=== PATIENT | female | born 1940 | race African-American/Black ===

== ENCOUNTER 2025-03-04 16:10 | Inpatient (IN) | payer MEDICARE, MEDICAID ==
[~2025-03-04] VITALS: Ht 165.1 cm; Wt 60.6 kg
[~2025-03-04 16:10] MED LIST: AMLO-905 PO; APIX2.5T PO; ATOR20TA PO; FURO20TA4 PO; HYDR25TA78 PO
[2025-03-04 16:13] VITALS: O2SAT 94
[2025-03-05 02:30] VITALS: BP 175/105; PULSE 123; PULSE 98; RESP 20; TEMP 36.5292
[2025-03-05 04:00] VITALS: BP 155/88; PULSE 107; RESP 18; TEMP 36.4; O2SAT 99
[2025-03-05] MEDS ORDERED: NALOXONE HCL 0.4MG/ML VIAL IV PRN (04:15)
[2025-03-05 08:00] VITALS: BP 153/93; PULSE 107; RESP 16; TEMP 36.3; O2SAT 97
[2025-03-05] MEDS: FUROSEMIDE 20MG TABLET PO SCH (08:55)
[2025-03-05] MEDS: AMLODIPINE 10MG TABLET PO SCH (08:55)
[2025-03-05] MEDS: HYDRALAZINE HCL 25MG TABLET PO SCH (08:55)
[2025-03-05] MEDS ORDERED: ONDANSETRON HCL 4MG/2ML INJ IV PRN (11:45)
[2025-03-05] MEDS ORDERED: IPRATROPIUM/ALBUTEROL 0.5-3(2.5)MG/3ML NEB HHN PRN (11:45)
[2025-03-05] MEDS ORDERED: ACETAMINOPHEN 325MG TABLET PO PRN (11:45)
[2025-03-05] MEDS ORDERED: DOCUSATE SODIUM 100MG CAPSULE PO PRN (11:45)
[2025-03-05 12:00] VITALS: BP 146/56; PULSE 78; RESP 20; TEMP 36.6; O2SAT 97
[2025-03-05 16:00] VITALS: BP 135/98; PULSE 74; RESP 18; TEMP 36.7; O2SAT 99
[2025-03-05 20:00] VITALS: BP 133/46; PULSE 85; RESP 18; TEMP 36.6; O2SAT 100
[2025-03-05] MEDS: ATORVASTATIN CALCIUM 20MG TABLET PO SCH (20:34)
[2025-03-05] MEDS ORDERED: APIXABAN 5 MG TABLET PO SCH (21:00)
[2025-03-05] MEDS: DILTIAZEM HCL 30MG TABLET PO SCH (21:55)
[2025-03-06] VITALS: BP 140/56; PULSE 64; RESP 17; TEMP 30.9; O2SAT 99
[2025-03-06 04:00] VITALS: BP 136/59; PULSE 80; RESP 18; TEMP 36.6; O2SAT 100
[2025-03-06 07:43] LABS: BASOPHILS % 1.3 % (0.0-2.0); EOSINOPHILS % 2.3 % (0.0-5.0); HEMATOCRIT. 22.9 % (36.0-48.0); HEMOGLOBIN. 7.1 g/dL (12.0-16.0); LYMPHOCYTES % 18.7 % (20.0-50.0); MEAN PLATELET VOLUME 8.1 fl (7.4-10.4); MONOCYTES % 10.9 % (2.0-8.0); NEUTROPHILS % 66.8 % (40.0-76.0); PLATELET 310 x1000/uL (130-400); RED BLOOD CELL COUNT 2.82 mill/uL (4.2-5.4); RED CELL DISTRIBUTION WIDTH 16.5 % (11.6-14.6)
[2025-03-06 08:00] VITALS: BP 149/84; PULSE 63; RESP 20; TEMP 35.9; O2SAT 96
[2025-03-06 08:04] LABS: CREATININE 3.5 mg/dL (0.6-1.0)
[2025-03-06 08:05] LABS: LDL CHOLESTEROL 66 mg/dL (5-100); TRIGLYCERIDE 32 mg/dL (0-150); UREA NITROGEN BLOOD 77 mg/dL (9-23)
[2025-03-06 08:36] LABS: TROPONIN I HIGH SENSITIVITY 55 ng/L (3.0-34)
[2025-03-06] MEDS: APIXABAN 2.5 MG TABLET PO SCH (09:10)
[2025-03-06 12:00] VITALS: BP 138/78; PULSE 61; RESP 20; TEMP 36.1; O2SAT 100
[2025-03-06 16:00] VITALS: BP 129/78; PULSE 61; RESP 18; TEMP 36.3; O2SAT 95
[2025-03-06 20:00] VITALS: BP 152/76; PULSE 100; RESP 20; TEMP 36.3; O2SAT 98
[2025-03-07] VITALS: BP 151/62; PULSE 59; RESP 19; TEMP 36.1; O2SAT 100
[2025-03-07 08:39] VITALS: BP 148/61; PULSE 56; RESP 20; TEMP 36.6; O2SAT 97
[2025-03-07] MEDS: SODIUM ZIRCONIUM CYCLOSILICATE 10GM/PACKET PO NR (12:14)
[2025-03-07 12:24] VITALS: BP 156/55; PULSE 59; RESP 20; TEMP 37.1; O2SAT 100
[2025-03-07 16:57] VITALS: BP 150/80; PULSE 60; RESP 20; TEMP 37.2; O2SAT 100
[2025-03-07 18:03] LABS: BASOPHILS % 1.9 % (0.0-2.0); EOSINOPHILS % 2.2 % (0.0-5.0); HEMATOCRIT. 25.3 % (36.0-48.0); HEMOGLOBIN. 8.0 g/dL (12.0-16.0); LYMPHOCYTES % 11.3 % (20.0-50.0); MEAN PLATELET VOLUME 8.1 fl (7.4-10.4); MONOCYTES % 10.2 % (2.0-8.0); NEUTROPHILS % 74.4 % (40.0-76.0); PLATELET 349 x1000/uL (130-400); RED BLOOD CELL COUNT 3.00 mill/uL (4.2-5.4); RED CELL DISTRIBUTION WIDTH 16.9 % (11.6-14.6)
[2025-03-07 18:31] LABS: CREATININE 3.7 mg/dL (0.6-1.0); UREA NITROGEN BLOOD 66.0 mg/dL (9-23)
[2025-03-07 20:00] VITALS: BP 155/75; PULSE 78; RESP 20; TEMP 36.4; O2SAT 95
[2025-03-08 04:00] VITALS: BP 168/109; PULSE 61; RESP 18; TEMP 36.5; O2SAT 97
[2025-03-08] MEDS: CLONIDINE 0.1MG TABLET PO PRN (04:51)
[2025-03-08] MEDS: SODIUM ZIRCONIUM CYCLOSILICATE 10GM/PACKET PO SCH ×2 (06:03→13:25)
[2025-03-08 06:24] LABS: BASOPHILS % 1.4 % (0.0-2.0); EOSINOPHILS % 2.4 % (0.0-5.0); HEMATOCRIT. 25.8 % (36.0-48.0); HEMOGLOBIN. 8.1 g/dL (12.0-16.0); LYMPHOCYTES % 13.9 % (20.0-50.0); MEAN PLATELET VOLUME 8.0 fl (7.4-10.4); MONOCYTES % 11.8 % (2.0-8.0); NEUTROPHILS % 70.5 % (40.0-76.0); PLATELET 345 x1000/uL (130-400); RED BLOOD CELL COUNT 3.18 mill/uL (4.2-5.4); RED CELL DISTRIBUTION WIDTH 17.0 % (11.6-14.6)
[2025-03-08 06:26] LABS: CREATININE 3.5 mg/dL (0.6-1.0); UREA NITROGEN BLOOD 83.0 mg/dL (9-23)
[2025-03-08 07:39] LABS: CLARITY URINE CLEAR (CLEAR); COLOR URINE YELLOW (YELLOW); GLUCOSE URINE NEGATIVE (NEGATIVE); KETONES URINE NEGATIVE (NEGATIVE); LEUKOCYTE ESTERASE URINE NEGATIVE (NEGATIVE); NITRITE URINE NEGATIVE (NEGATIVE); OCCULT BLOOD URINE NEGATIVE (NEGATIVE); PH URINE 5.5 (4.5-8.0); PROTEIN URINE 3+ (NEGATIVE); SPECIFIC GRAVITY URINE 1.016 (1.005-1.030); UROBILINOGEN URINE 0.2 E.U./dL (0.2-1.0)
[2025-03-08 08:23] VITALS: BP 150/106; PULSE 100; RESP 20; TEMP 37.2; O2SAT 98
[2025-03-08 08:53] LABS: BACTERIA URINE NONE SEEN; RBC URINE 0-2 /hpf (0-2); SQUAMOUS EPITHELIAL CELL URINE 1+ /lpf (RARE/1+); WBC URINE 0-2 /hpf (0-2); YEAST URINE NONE SEEN
[2025-03-08] MEDS: HYDRALAZINE HCL 100MG TABLET PO SCH (10:45)
[2025-03-08] MEDS ORDERED: ALBUTEROL (0.083%) 2.5MG/3ML NEB HHN SCH (11:15)
[2025-03-08 12:20] VITALS: BP 132/55; PULSE 57; RESP 20; TEMP 36.5; O2SAT 100
[2025-03-08 16:35] VITALS: BP 119/53; PULSE 54; RESP 20; TEMP 37.1; O2SAT 96
[2025-03-08] MEDS ORDERED: FUROSEMIDE 40MG/4ML VIAL ONE ×2 (17:41→17:50)
[2025-03-08] MEDS ORDERED: FUROSEMIDE 20MG/2ML VIAL ONE (17:42)
[2025-03-08] MEDS: FUROSEMIDE 20MG/2ML VIAL IVP NR (17:45)
[2025-03-08] MEDS: HYDROCODONE/ACETAMINOPHEN 5/325MG TABLET PO PRN (19:03)
[2025-03-08 20:00] VITALS: BP 132/77; PULSE 114; RESP 18; TEMP 36.8; O2SAT 96
[2025-03-09] VITALS: BP 131/58; PULSE 108; RESP 20; TEMP 37.1; O2SAT 98
[2025-03-09 04:00] VITALS: BP 148/87; PULSE 101; RESP 18; TEMP 36.9; O2SAT 98
[2025-03-09 06:20] LABS: CREATININE 3.6 mg/dL (0.6-1.0); UREA NITROGEN BLOOD 84.0 mg/dL (9-23)
[2025-03-09 06:38] LABS: BASOPHILS % 1.0 % (0.0-2.0); EOSINOPHILS % 3.7 % (0.0-5.0); HEMATOCRIT. 23.9 % (36.0-48.0); HEMOGLOBIN. 7.5 g/dL (12.0-16.0); LYMPHOCYTES % 8.8 % (20.0-50.0); MEAN PLATELET VOLUME 8.0 fl (7.4-10.4); MONOCYTES % 10.5 % (2.0-8.0); NEUTROPHILS % 76.0 % (40.0-76.0); PLATELET 341 x1000/uL (130-400); RED BLOOD CELL COUNT 2.95 mill/uL (4.2-5.4); RED CELL DISTRIBUTION WIDTH 16.8 % (11.6-14.6)
[2025-03-09 08:00] VITALS: BP 165/68; PULSE 69; RESP 17; TEMP 36.1; O2SAT 100
[2025-03-09 12:00] VITALS: BP 163/62; PULSE 65; RESP 18; TEMP 36.4; O2SAT 99
[2025-03-09 16:00] VITALS: BP 150/94; PULSE 71; RESP 20; O2SAT 100
[2025-03-09 20:00] VITALS: BP 124/84; PULSE 93; RESP 18; TEMP 37.1; O2SAT 97
[2025-03-09] MEDS: CLONIDINE 0.1MG TABLET PO SCH (22:12)
[2025-03-10] VITALS: BP 127/78; PULSE 90; RESP 20; TEMP 37; O2SAT 98
[2025-03-10 04:00] VITALS: BP 130/77; PULSE 91; RESP 18; TEMP 37.1; O2SAT 96
[2025-03-10 08:00] VITALS: BP 107/56; PULSE 61; RESP 20; TEMP 36.2; O2SAT 100
[2025-03-10] MEDS: FUROSEMIDE 40MG/4ML VIAL IVP SCH (08:23)
[2025-03-10 09:39] LABS: CREATININE 3.7 mg/dL (0.6-1.0); UREA NITROGEN BLOOD 92.0 mg/dL (9-23)
[2025-03-10 10:38] LABS: BASOPHILS % 1.6 % (0.0-2.0); EOSINOPHILS % 3.2 % (0.0-5.0); LYMPHOCYTES % 9.2 % (20.0-50.0); MEAN PLATELET VOLUME 8.0 fl (7.4-10.4); MONOCYTES % 11.8 % (2.0-8.0); NEUTROPHILS % 74.2 % (40.0-76.0); PLATELET 322 x1000/uL (130-400); RED BLOOD CELL COUNT 2.57 mill/uL (4.2-5.4); RED CELL DISTRIBUTION WIDTH 16.7 % (11.6-14.6)
[2025-03-10 10:48] LABS: HEMATOCRIT. 20.6 % (36.0-48.0); HEMOGLOBIN. 6.4 g/dL (12.0-16.0)
[2025-03-10 12:00] VITALS: BP 118/64; PULSE 74; RESP 20; TEMP 36.7; O2SAT 100
[2025-03-10 16:00] VITALS: BP 120/67; PULSE 71; RESP 18; TEMP 36.3; O2SAT 100
[2025-03-10 19:04] LABS: BASOPHILS % 1.7 % (0.0-2.0); EOSINOPHILS % 3.7 % (0.0-5.0); HEMATOCRIT. 23.0 % (36.0-48.0); HEMOGLOBIN. 7.2 g/dL (12.0-16.0); LYMPHOCYTES % 8.6 % (20.0-50.0); MEAN PLATELET VOLUME 8.1 fl (7.4-10.4); MONOCYTES % 11.0 % (2.0-8.0); NEUTROPHILS % 75.0 % (40.0-76.0); PLATELET 376 x1000/uL (130-400); RED BLOOD CELL COUNT 2.87 mill/uL (4.2-5.4); RED CELL DISTRIBUTION WIDTH 16.5 % (11.6-14.6)
[2025-03-10 19:11] LABS: FOLIC ACID (FOLATE) SERUM 7.93 ng/mL (>5.38)
[2025-03-10 19:12] LABS: VITAMIN B12 SERUM 483 pg/mL (211-911)
[2025-03-10 20:00] VITALS: BP 135/74; PULSE 77; RESP 16; TEMP 36.2; O2SAT 100
[2025-03-10] MEDS ORDERED: PATIENT'S OWN MEDICATION IV SCH (23:00)
[2025-03-10] MEDS ORDERED: IRON SUCROSE COMPLEX 100 MG/5 ML ML IV SCH (23:00)
[2025-03-11] VITALS (12 sets, daily range): BP systolic 99–163; BP diastolic 35–86; PULSE 52–104; RESP 18–20; TEMP 36.1–36.7; O2SAT 95–100
[2025-03-11] MEDS: IRON SUCROSE COMPLEX 100 MG/5 ML ML IV SCH (06:13)
[2025-03-11 07:07] LABS: CREATININE 3.8 mg/dL (0.6-1.0); UREA NITROGEN BLOOD 96.0 mg/dL (9-23)
[2025-03-11 07:47] LABS: BASOPHILS % 1.5 % (0.0-2.0); EOSINOPHILS % 3.0 % (0.0-5.0); HEMATOCRIT. 21.2 % (36.0-48.0); LYMPHOCYTES % 9.7 % (20.0-50.0); MEAN PLATELET VOLUME 8.0 fl (7.4-10.4); MONOCYTES % 13.5 % (2.0-8.0); NEUTROPHILS % 72.3 % (40.0-76.0); PLATELET 339 x1000/uL (130-400); RED BLOOD CELL COUNT 2.61 mill/uL (4.2-5.4); RED CELL DISTRIBUTION WIDTH 16.9 % (11.6-14.6)
[2025-03-11 08:07] LABS: HEMOGLOBIN. 6.7 g/dL (12.0-16.0)
[2025-03-11] MEDS ORDERED: QUET25TA36 PO (17:54)
[2025-03-11] MEDS ORDERED: ATOR10TA69 PO (17:54)
[2025-03-11] MEDS ORDERED: DOCU100T PO (17:54)
[2025-03-11] MEDS ORDERED: FURO40TA5 PO (17:54)
[2025-03-11] MEDS ORDERED: FAMO20TA8 PO (17:54)
[2025-03-11] MEDS ORDERED: CHOL400D7 PO (17:54)
[2025-03-11] MEDS ORDERED: ZOLP5TAB18 PO (17:54)
[2025-03-11] MEDS ORDERED: CLON0.1T PO (17:54)
[2025-03-11] MEDS ORDERED: APIX5TAB PO (17:54)
[2025-03-11] MEDS ORDERED: AMLO5TAB88 PO (17:54)
[2025-03-11] MEDS ORDERED: IPRA3AMP9 HHN (17:54)
[2025-03-11] MEDS: EPOETIN ALFA-EPBX 4,000 UNITS/ML VIAL SUBCUT SCH (21:00)
[2025-03-11] MEDS: PANTOPRAZOLE SODIUM 40 MG/VIAL IV SCH (21:00)
[2025-03-12] VITALS: BP 136/76; PULSE 105; RESP 16; TEMP 36.4; O2SAT 97
[2025-03-12 04:00] VITALS: BP 141/76; PULSE 95; RESP 18; TEMP 36.3; O2SAT 96
[2025-03-12 06:46] LABS: BASOPHILS % 1.4 % (0.0-2.0); EOSINOPHILS % 1.8 % (0.0-5.0); HEMATOCRIT. 22.8 % (36.0-48.0); HEMOGLOBIN. 7.4 g/dL (12.0-16.0); LYMPHOCYTES % 12.2 % (20.0-50.0); MEAN PLATELET VOLUME 7.8 fl (7.4-10.4); MONOCYTES % 12.4 % (2.0-8.0); NEUTROPHILS % 72.2 % (40.0-76.0); PLATELET 320 x1000/uL (130-400); RED BLOOD CELL COUNT 2.79 mill/uL (4.2-5.4); RED CELL DISTRIBUTION WIDTH 17.1 % (11.6-14.6)
[2025-03-12 07:05] LABS: CREATININE 3.6 mg/dL (0.6-1.0); UREA NITROGEN BLOOD 90.0 mg/dL (9-23)
[2025-03-12 08:00] VITALS: BP 140/51; PULSE 64; RESP 18; TEMP 36.6; O2SAT 100
[2025-03-12] MEDS: FOLIC ACID/VITAMIN B COMP W-C TABLET PO SCH (09:35)
[2025-03-12 12:00] VITALS: BP 126/61; PULSE 64; RESP 19; TEMP 36.4; O2SAT 100
[2025-03-12 16:00] VITALS: BP 100/54; PULSE 77; RESP 19; TEMP 36.5; O2SAT 100
[2025-03-12] MEDS ORDERED: HYDR100T31 PO (17:55)
[2025-03-12] MEDS ORDERED: DILT30TA3 PO (17:55)
[2025-03-12] MEDS ORDERED: ATOR20TA PO (17:55)
[2025-03-12 20:22] VITALS: BP 123/58; PULSE 76; RESP 20; TEMP 36.2; O2SAT 97
[2025-03-13 00:24] VITALS: BP 157/55; PULSE 71; RESP 19; TEMP 36.6; O2SAT 98
[2025-03-13 04:28] VITALS: BP 179/99; PULSE 71; RESP 18; TEMP 36.6; O2SAT 98
[2025-03-13 08:00] VITALS: BP 132/58; PULSE 77; RESP 18; TEMP 36.3; O2SAT 98
[2025-03-13 12:00] VITALS: BP 136/60; PULSE 63; RESP 20; TEMP 36.6; O2SAT 95
[2025-03-13 12:20] LABS: BASOPHILS % 1.4 % (0.0-2.0); EOSINOPHILS % 1.4 % (0.0-5.0); HEMATOCRIT. 25.3 % (36.0-48.0); HEMOGLOBIN. 7.9 g/dL (12.0-16.0); LYMPHOCYTES % 11.0 % (20.0-50.0); MEAN PLATELET VOLUME 7.6 fl (7.4-10.4); MONOCYTES % 12.3 % (2.0-8.0); NEUTROPHILS % 73.9 % (40.0-76.0); PLATELET 391 x1000/uL (130-400); RED BLOOD CELL COUNT 3.17 mill/uL (4.2-5.4); RED CELL DISTRIBUTION WIDTH 17.0 % (11.6-14.6)
[2025-03-13 12:31] LABS: CREATININE 3.6 mg/dL (0.6-1.0); UREA NITROGEN BLOOD 81.0 mg/dL (9-23)
[2025-03-13 14:11] VITALS: BP 147/79; PULSE 79; RESP 20; TEMP 98.2
[2025-03-13 14:42] VITALS: TEMP 98.2
[2025-03-13] MEDS: ACETAMINOPHEN 325MG TABLET PO PRN (14:42)
== END 2025-03-13 18:03 | DRG 291 ==
LOC: ER 16:10 → 7WST 20:38 → EDBEDREQ 20:47 → EDBEDREQTM 20:47 → ENRESERV 21:44
PROVIDERS: ADMIT Family Medicine Adult Medicine; ATTEND Family Medicine Adult Medicine
PROC: 30233N1 Transfusion of Nonautologous Red Blood Cells into Peripheral Vein, Percutaneous Approach (ICD-10-PCS; principal; 2025-03-11)
DX: I13.0 Hypertensive heart and chronic kidney disease with heart failure and stage 1 through stage 4 chronic kidney disease, or unspecified chronic kidney disease (principal); I50.33 Acute on chronic diastolic (congestive) heart failure; G93.40 Encephalopathy, unspecified; N17.9 Acute kidney failure, unspecified; I48.91 Unspecified atrial fibrillation; F03.90 Unspecified dementia, unspecified severity, without behavioral disturbance, psychotic disturbance, mood disturbance, and anxiety; N18.9 Chronic kidney disease, unspecified; D50.9 Iron deficiency anemia, unspecified; I35.1 Nonrheumatic aortic (valve) insufficiency; Z88.0 Allergy status to penicillin; Z88.2 Allergy status to sulfonamides; Z86.73 Personal history of transient ischemic attack (TIA), and cerebral infarction without residual deficits; Z79.899 Other long term (current) drug therapy; Z79.01 Long term (current) use of anticoagulants; Z79.82 Long term (current) use of aspirin
CPT/HCPCS: 36415; 71045; 76770; 80048; 80061; 81003; 82550; 82607; 82728; 82746; 83540; 83550; 83735; 83880; 84425; 84443; 84484; 85014; 85018; 85025; 85044; 86850; 86900; 86920; 93005; 99285; J0885; J1938; J2470; P9016

== ENCOUNTER 2025-05-01 14:50 | Inpatient (IN) | payer MEDICARE, MEDICAID ==
[~2025-05-01] VITALS: Ht 162.6 cm; Wt 98.4 kg
[~2025-05-01 14:50] MED LIST changes: -AMLO-905 PO; -APIX2.5T PO; +APIX5TAB PO; +CHOL400D7 PO; +CLON0.1T PO; +DILT30TA3 PO; +DOCU100T PO; +FAMO20TA8 PO; -FURO20TA4 PO; +FURO40TA5 PO; +HYDR100T31 PO; -HYDR25TA78 PO; +IPRA3AMP9 HHN; +QUET25TA36 PO; +ZOLP5TAB18 PO
[2025-05-01] MEDS: FUROSEMIDE 40MG/4ML VIAL IV ONE (15:48)
[2025-05-01 15:51] LABS: MEAN PLATELET VOLUME 7.7 fl (7.4-10.4); PLATELET 339 x1000/uL (130-400); RED BLOOD CELL COUNT 2.38 mill/uL (4.2-5.4); RED CELL DISTRIBUTION WIDTH 20.1 % (11.6-14.6)
[2025-05-01 16:08] LABS: CREATININE 3.7 mg/dL (0.6-1.0); PROTEIN TOTAL 6.3 g/dL (6.0-8.3); UREA NITROGEN BLOOD 81 mg/dL (9-23)
[2025-05-01 16:09] LABS: ASPARTATE AMINOTRANSFERASE 21 IU/L (<34)
[2025-05-01 16:10] LABS: BILIRUBIN DIRECT < 0.1 mg/dL (<=3.0); BILIRUBIN TOTAL 0.2 mg/dL (0.1-1.0); TROPONIN I HIGH SENSITIVITY 50 ng/L (3.0-34)
[2025-05-01 16:17] LABS: HEMATOCRIT. 19.7 % (36.0-48.0); HEMOGLOBIN. 5.8 g/dL (12.0-16.0)
[2025-05-01] MEDS ORDERED: LEVOFLOXACIN 750MG PREMIX 150 ML IV SCH (17:00)
[2025-05-01 17:57] LABS: LYMPHOCYTES % MANUAL 9.0 % (20.0-60.0); MONOCYTES % MANUAL 11.0 % (2.0-8.0); NEUTROPHILS % MANUAL 80.0 % (45.0-75.0); NUCLEATED RED BLOOD CELLS 3 /100 WBC; PLATELET ESTIMATE NORMAL
[2025-05-01 20:00] VITALS: BP 184/77; PULSE 86; RESP 19; TEMP 36.5; O2SAT 98
[2025-05-01 20:05] VITALS: BP 176/57; PULSE 81; RESP 18; TEMP 36.61404
[2025-05-01 20:20] VITALS: BP 179/57; PULSE 85; RESP 18; TEMP 36.61404
[2025-05-01 20:45] VITALS: BP 184/77; PULSE 86; RESP 18; TEMP 36.5292
[2025-05-01 21:17] LABS: TROPONIN I HIGH SENSITIVITY 49 ng/L (3.0-34)
[2025-05-01 21:35] VITALS: BP 184/77; PULSE 86; RESP 18; TEMP 36.50292
[2025-05-01] MEDS ORDERED: ONDANSETRON HCL 4MG/2ML INJ IV PRN (22:45)
[2025-05-01] MEDS ORDERED: ACETAMINOPHEN 325MG TABLET PO PRN (22:45)
[2025-05-01] MEDS ORDERED: DIPHENHYDRAMINE 50MG/ML VIAL IV PRN (22:45)
[2025-05-01] MEDS: LEVOFLOXACIN 750MG PREMIX 150 ML IV SCH (23:13)
[2025-05-01] MEDS: CLONIDINE 0.1MG TABLET PO PRN (23:51)
[2025-05-02] VITALS (8 sets, daily range): BP systolic 140–161; BP diastolic 63–87; PULSE 74–88; RESP 15–20; TEMP 35.8–36.6; O2SAT 93–100
[2025-05-02] MEDS: HYDRALAZINE 20MG/ML VIAL IV PRN (00:01)
[2025-05-02] MEDS: IPRATROPIUM/ALBUTEROL 0.5-3(2.5)MG/3ML NEB HHN PRN (03:07)
[2025-05-02 07:50] LABS: BASOPHILS % 0.3 % (0.0-2.0); EOSINOPHILS % 0.1 % (0.0-5.0); HEMATOCRIT. 26.0 % (36.0-48.0); HEMOGLOBIN. 8.2 g/dL (12.0-16.0); LYMPHOCYTES % 3.7 % (20.0-50.0); MEAN PLATELET VOLUME 8.0 fl (7.4-10.4); MONOCYTES % 9.6 % (2.0-8.0); NEUTROPHILS % 86.3 % (40.0-76.0); PLATELET 309 x1000/uL (130-400); RED BLOOD CELL COUNT 3.00 mill/uL (4.2-5.4); RED CELL DISTRIBUTION WIDTH 19.5 % (11.6-14.6)
[2025-05-02 07:53] LABS: CREATININE 3.5 mg/dL (0.6-1.0); UREA NITROGEN BLOOD 75.0 mg/dL (9-23)
[2025-05-02 08:05] LABS: ADD RBC MORPHOLOGY YES
[2025-05-02] MEDS: BUMETANIDE 1MG/4ML VIAL IV SCH (09:03)
[2025-05-02] MEDS ORDERED: LIDOCAINE HCL 1% 10 MG/ML 10ML VIAL ONE (11:20)
[2025-05-02] MEDS ORDERED: CLONIDINE 0.1MG TABLET PO SCH (15:15)
[2025-05-02 16:49] LABS: PLATELET ESTIMATE NORMAL
[2025-05-02] MEDS ORDERED: FUROSEMIDE 40MG TABLET PO SCH ×2 (17:15)
[2025-05-02] MEDS: HYDRALAZINE HCL 100MG TABLET PO SCH (22:00)
[2025-05-02] MEDS: FAMOTIDINE 20MG TABLET PO SCH (22:00)
[2025-05-02] MEDS: DILTIAZEM HCL 30MG TABLET PO SCH (22:00)
[2025-05-02] MEDS: QUETIAPINE FUMARATE 25MG TABLET PO SCH (22:00)
[2025-05-02] MEDS: ATORVASTATIN CALCIUM 20MG TABLET PO SCH (22:01)
[2025-05-02] MEDS: ZOLPIDEM TARTRATE 5MG TABLET PO PRN (22:03)
[2025-05-03] VITALS: BP 101/49; PULSE 84; RESP 18; TEMP 36.5; O2SAT 93
[2025-05-03 01:00] LABS: BG BASE EXCESS -7.5 mmol/L (-2.0-3.0); BG CARBOXYHEMOGLOBIN 1.5 % (0.5-1.5); BG DEOXYHEMOGLOBIN 1.5 % (0.0-5.0); BG FRACTION INSPIRED OXYGEN 21; BG HCO3 ACT 19.4 mmol/L (21.0-28.0); BG METHEMOGLOBIN 0.2 % (0.5-1.5); BG OXYGEN SATURATION 98.5 % (94.0-98.0); BG OXYHEMOGLOBIN 96.8 % (94.0-98.0); BG PCO2 45.2 mmHg (32.0-45.0); BG PH 7.250 (7.350-7.450); BG PO2 126.4 mmHg (83.0-108.0); BG TOTAL HEMOGLOBIN 9.2 g/dL (12.0-16.0); BG VENT MODE ROOM AIR
[2025-05-03 04:00] VITALS: BP 124/62; PULSE 78; RESP 18; TEMP 36.5; O2SAT 94
[2025-05-03 08:00] VITALS: BP 155/51; PULSE 86; RESP 18; TEMP 36.5; O2SAT 96
[2025-05-03] MEDS ORDERED: SODIUM BICARBONATE 8.4% 50MEQ/50ML SYR IV NR (09:25)
[2025-05-03] MEDS: GUAIFENESIN-DM 200MG-20MG/10ML UDC PO PRN (10:04)
[2025-05-03 12:00] VITALS: BP 162/62; PULSE 85; RESP 18; TEMP 36.6; O2SAT 98
[2025-05-03] MEDS: AZTREONAM 2 GM in DEXT 5% WATER 100 ML IV SCH (14:00)
[2025-05-03 18:20] LABS: HEMATOCRIT. 26.5 % (36.0-48.0); HEMOGLOBIN. 8.5 g/dL (12.0-16.0); MEAN PLATELET VOLUME 7.8 fl (7.4-10.4); PLATELET 340 x1000/uL (130-400); RED BLOOD CELL COUNT 2.99 mill/uL (4.2-5.4); RED CELL DISTRIBUTION WIDTH 19.1 % (11.6-14.6)
[2025-05-03 18:34] LABS: CREATININE 3.7 mg/dL (0.6-1.0)
[2025-05-03 18:35] LABS: UREA NITROGEN BLOOD 81 mg/dL (9-23)
[2025-05-03 18:38] LABS: TROPONIN I HIGH SENSITIVITY 50 ng/L (3.0-34)
[2025-05-03 18:42] LABS: LYMPHOCYTES % MANUAL 2.0 % (20.0-60.0); MONOCYTES % MANUAL 7.0 % (2.0-8.0); NEUTROPHILS % MANUAL 91.0 % (45.0-75.0); PLATELET ESTIMATE NORMAL
[2025-05-03 18:45] LABS: INR 1.0
[2025-05-03 20:00] VITALS: BP 150/86; PULSE 89; RESP 18; TEMP 36.4; O2SAT 94
[2025-05-04] VITALS (15 sets, daily range): BP systolic 108–161; BP diastolic 39–122; PULSE 70–94; RESP 17–70; TEMP 36.1–36.7; O2SAT 95–100
[2025-05-04] MEDS ORDERED: LEVOFLOXACIN 500MG PREMIX 100 ML IV SCH
[2025-05-04 07:12] LABS: HEMATOCRIT. 26.0 % (36.0-48.0); HEMOGLOBIN. 8.3 g/dL (12.0-16.0); MEAN PLATELET VOLUME 8.0 fl (7.4-10.4); PLATELET 335 x1000/uL (130-400); RED BLOOD CELL COUNT 3.01 mill/uL (4.2-5.4); RED CELL DISTRIBUTION WIDTH 18.9 % (11.6-14.6)
[2025-05-04 07:28] LABS: CREATININE 3.7 mg/dL (0.6-1.0)
[2025-05-04 07:29] LABS: UREA NITROGEN BLOOD 98.0 mg/dL (9-23)
[2025-05-04] MEDS ORDERED: HEPARIN 1000 UNITS/ML 10ML ONE (12:50)
[2025-05-04] MEDS: LORAZEPAM 2MG/ML UD SYRINGE IV PRN (13:30)
[2025-05-04 13:51] LABS: BAND% 1.0 % (1.0-6.0); BASOPHILS % MANUAL 1.0 % (0.0-2.0); EOSINOPHILS % MANUAL 2.0 % (0.0-5.0); LYMPHOCYTES % MANUAL 3.0 % (20.0-60.0); MONOCYTES % MANUAL 5.0 % (2.0-8.0); NEUTROPHILS % MANUAL 88.0 % (45.0-75.0)
[2025-05-04 13:52] LABS: PLATELET ESTIMATE NORMAL
[2025-05-04] MEDS: AZTREONAM 2 GM in DEXT 5% WATER 100 ML IV SCH (21:56)
[2025-05-05] VITALS (12 sets, daily range): BP systolic 94–163; BP diastolic 60–97; PULSE 60–96; RESP 16–20; TEMP 36.2–37; O2SAT 96–100
[2025-05-05 12:13] LABS: HEMATOCRIT. 27.9 % (36.0-48.0); HEMOGLOBIN. 8.8 g/dL (12.0-16.0); MEAN PLATELET VOLUME 7.7 fl (7.4-10.4); PLATELET 318 x1000/uL (130-400); RED BLOOD CELL COUNT 3.18 mill/uL (4.2-5.4); RED CELL DISTRIBUTION WIDTH 19.0 % (11.6-14.6)
[2025-05-05 12:33] LABS: CREATININE 3.4 mg/dL (0.6-1.0); UREA NITROGEN BLOOD 54.0 mg/dL (9-23)
[2025-05-06] VITALS (7 sets, daily range): BP systolic 125–166; BP diastolic 62–90; PULSE 66–92; RESP 16–18; TEMP 35.8–36.4; O2SAT 94–98
[2025-05-06 04:10] LABS: LYMPHOCYTES % MANUAL 4.0 % (20.0-60.0); MONOCYTES % MANUAL 4.0 % (2.0-8.0); NEUTROPHILS % MANUAL 92.0 % (45.0-75.0); PLATELET ESTIMATE NORMAL
[2025-05-06] MEDS ORDERED: NALOXONE HCL 0.4MG/ML VIAL IV PRN (04:30)
[2025-05-06] MEDS: HYDROCODONE/ACETAMINOPHEN 5/325MG TABLET PO PRN (04:35)
[2025-05-06 07:26] LABS: HEMATOCRIT. 25.3 % (36.0-48.0); HEMOGLOBIN. 7.9 g/dL (12.0-16.0); MEAN PLATELET VOLUME 7.6 fl (7.4-10.4); PLATELET 278 x1000/uL (130-400); RED BLOOD CELL COUNT 2.94 mill/uL (4.2-5.4); RED CELL DISTRIBUTION WIDTH 18.6 % (11.6-14.6)
[2025-05-06 07:27] LABS: FOLIC ACID (FOLATE) SERUM 12.07 ng/mL (>5.38); VITAMIN B12 SERUM 1116 pg/mL (211-911)
[2025-05-06 07:30] LABS: CREATININE 3.0 mg/dL (0.6-1.0); UREA NITROGEN BLOOD 43.0 mg/dL (9-23)
[2025-05-06 16:09] LABS: EOSINOPHILS % MANUAL 1.0 % (0.0-5.0); LYMPHOCYTES % MANUAL 7.0 % (20.0-60.0); MONOCYTES % MANUAL 10.0 % (2.0-8.0); NEUTROPHILS % MANUAL 82.0 % (45.0-75.0); PLATELET ESTIMATE NORMAL
[2025-05-06] MEDS: EPOETIN ALFA-EPBX 4,000 UNITS/ML VIAL SUBCUT SCH (21:27)
[2025-05-07] VITALS: BP 131/71; PULSE 87; RESP 18; TEMP 36.4; O2SAT 98
[2025-05-07 04:00] VITALS: BP 153/75; PULSE 84; RESP 17; TEMP 36; O2SAT 97
[2025-05-07 08:00] VITALS: BP 152/71; PULSE 70; RESP 18; TEMP 36.7; O2SAT 96
[2025-05-07 11:20] LABS: HEMATOCRIT. 29.0 % (36.0-48.0); HEMOGLOBIN. 9.2 g/dL (12.0-16.0); MEAN PLATELET VOLUME 7.9 fl (7.4-10.4); PLATELET 309 x1000/uL (130-400); RED BLOOD CELL COUNT 3.34 mill/uL (4.2-5.4); RED CELL DISTRIBUTION WIDTH 18.5 % (11.6-14.6)
[2025-05-07 11:38] LABS: CREATININE 3.2 mg/dL (0.6-1.0); UREA NITROGEN BLOOD 46 mg/dL (9-23)
[2025-05-07 12:00] VITALS: BP 184/101; PULSE 83; RESP 18; TEMP 36.6; O2SAT 97
[2025-05-07] MEDS: HYDRALAZINE 20MG/ML VIAL IV PRN (13:20)
[2025-05-07 13:41] VITALS: BP 152/63; PULSE 88; RESP 17; TEMP 97.9
[2025-05-07 16:24] LABS: EOSINOPHILS % MANUAL 1.0 % (0.0-5.0); LYMPHOCYTES % MANUAL 7.0 % (20.0-60.0); MONOCYTES % MANUAL 6.0 % (2.0-8.0); NEUTROPHILS % MANUAL 86.0 % (45.0-75.0); PLATELET ESTIMATE NORMAL
== END 2025-05-07 14:53 | DRG 177 ==
LOC: ER 15:01 → EDBEDREQ 15:22 → 5WST 17:39 → EDBEDREQTM 17:40 → EDBEDREQ 17:40
PROVIDERS: ADMIT Family Medicine Adult Medicine; ATTEND Family Medicine Adult Medicine
PROC: 30233N1 Transfusion of Nonautologous Red Blood Cells into Peripheral Vein, Percutaneous Approach (ICD-10-PCS; 2025-05-01)
PROC: 5A1D70Z Performance of Urinary Filtration, Intermittent, Less than 6 Hours Per Day (ICD-10-PCS; principal; 2025-05-04)
PROC: 02HV33Z Insertion of Infusion Device into Superior Vena Cava, Percutaneous Approach (ICD-10-PCS; 2025-05-04)
PROC: B548ZZA Ultrasonography of Superior Vena Cava, Guidance (ICD-10-PCS; 2025-05-04)
PROC: 5A1D70Z Performance of Urinary Filtration, Intermittent, Less than 6 Hours Per Day (ICD-10-PCS; 2025-05-05)
DX: J69.0 Pneumonitis due to inhalation of food and vomit (principal); I50.33 Acute on chronic diastolic (congestive) heart failure; N18.6 End stage renal disease; I13.2 Hypertensive heart and chronic kidney disease with heart failure and with stage 5 chronic kidney disease, or end stage renal disease; G93.49 Other encephalopathy; N17.9 Acute kidney failure, unspecified; Z99.2 Dependence on renal dialysis; Z79.01 Long term (current) use of anticoagulants; D50.9 Iron deficiency anemia, unspecified; I35.1 Nonrheumatic aortic (valve) insufficiency; F03.90 Unspecified dementia, unspecified severity, without behavioral disturbance, psychotic disturbance, mood disturbance, and anxiety; I48.91 Unspecified atrial fibrillation; E78.5 Hyperlipidemia, unspecified; Z86.73 Personal history of transient ischemic attack (TIA), and cerebral infarction without residual deficits; Z88.0 Allergy status to penicillin; Z88.2 Allergy status to sulfonamides
CPT/HCPCS: 36415; 36556; 36600; 71045; 77001; 80048; 80076; 82375; 82607; 82728; 82746; 82805; 82962; 83540; 83550; 83605; 83735; 83880; 84145; 84425; 84443; 84484; 85025; 85044; 86850; 86900; 86920; 90935; 93005; 93970; 94070; 94640; 99285; A4606; C1752; J0360; J0885; J1644; J1938; J1956; J2003; J2060; J3490; J7060; P9016